=== PATIENT | male | born 1980 | race Caucasian/White ===

== ENCOUNTER 2018-01-18 00:24 | Emergency (ER) | payer SELFPAY ==
[~2018-01-18] VITALS: Ht 180.3 cm; Wt 95.3 kg
--- NOTE | 2018-01-18 00:36 | NUR ---
PT TO ER BED 8. BIBRA IN [employer]ODY. PER [employer] GLF W/NOTED HEAD LAC. DENIES LOC. NEED OTB. 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 VSS/RESP EVEN UNLABORED/NAD NOTED/SKIN WARM AND DRY/DENIES N-V-D/AFEBRILE/AOX4. AWAITING MD HUNTER.
--- NOTE | 2018-01-18 01:22 | NUR ---
PT TO CT VIA STRETCHER.
--- NOTE | 2018-01-18 01:30 | NUR ---
STAPLE TRAY SET UP AT BEDSIDE FOR MD.
--- NOTE | 2018-01-18 02:16 | NUR ---
Patient discharged into [employer] custody, medically cleared in stable condition. Written and verbal after care instructions given. Patient and [employer] verbalizes understanding of instruction. Patient is awake and alert to self, day, and place. Patient ambulatory with a steady gait.
[2018-01-18 02:19] VITALS: BP 128/82
== END 2018-01-18 02:20 ==
LOC: ER 00:26
DX: S01.01XA Laceration without foreign body of scalp, initial encounter (principal); W01.198A Fall on same level from slipping, tripping and stumbling with subsequent striking against other object, initial encounter; Y93.89 Activity, other specified; Y92.89 Other specified places as the place of occurrence of the external cause; Y99.8 Other external cause status
CPT/HCPCS: 12001; 70450; 72125; 99284; A4606; A6402; Z7610